=== PATIENT | male | born 1970 | race Caucasian/White ===

== ENCOUNTER 2016-08-11 16:12 | Observation (INO) | payer OTHER ==
[~2016-08-11] VITALS: Ht 182.9 cm; Wt 108.9 kg
[~2016-08-11 16:12] MED LIST: CITALOPRAM HYDR20 MG PO; CLONAZEPAM2 MG PO; DOXYCYCLINE MO100 MG PO; MEDROL DOSEPAK1 PAC PO; NORCO 325 MG-51 TAB PO; VALIUM2 MG PO
--- NOTE | 2016-08-11 16:18 | NUR ---
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 DENIES ANY NAUSEA, VOMITING, DIFF URINATING.
[2016-08-11 16:45] LABS: ABSOLUTE BASOPHIL COUNT 0.1 /CUMM (0.0-0.2); ABSOLUTE EOSINOPHIL COUNT 0 /CUMM (0.0-0.7); ABSOLUTE GRANULOCYTE CT 7.4 /CUMM (1.4-6.5); ABSOLUTE LYMPH COUNT 1.8 /CUMM (1.2-3.4); ABSOLUTE MONOCYTE COUNT 0.6 /CUMM (0.10-0.60); BASOPHIL % 1.5 % (0.0-2.0); EOSINOPHIL % 0.2 % (0-5); HEMATOCRIT 44.1 % (42-52); MEAN CORPUSCULAR HGB 31.7 PG (27.0-31.0); MEAN CORPUSCULAR HGB CONC 34.2 G/DL (33.0-37.0); MEAN CORPUSCULAR VOLUME 92.9 FL (80.0-94.0); MEAN PLATELET VOLUME 8.4 FL (7.4-10.4); PLATELET COUNT 263 /CUMM (130-400); RBC DISTRIBUTION WIDTH 13.2 % (11.5-14.5); RED BLOOD CELL CT 4.75 /CUMM (4.70-6.10); WHITE BLOOD CELL COUNT 9.9 /CUMM (4.8-10.8)
[2016-08-11 16:55] LABS: GRANULOCYTE % 74.8 % (42.2-75.2)
--- NOTE | 2016-08-11 17:02 | ED GI/GU/ABDOMINAL COMPLAINT ---
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 DENIES ANY NAUSEA, VOMITING, DIFF URINATING. Triage Nurses Notes Reviewed? yes Onset: Abrupt Duration: hour(s): (1), constant Timing: recent history Quality/Severity: aching, severe, throbbing Severity Numbers: 10 Location: left lower quadrant Radiation: LUQ Activities at Onset: none Prior Abdominal Problems: none No Modifying Factors: none Associated Symptoms: DENIES HPI: 45-year-old male with no past medical history presents to emergency room with family who is interpreting stating that for the past 1 hour he's had severe aching throbbing left lower quadrant abdominal pain that is radiating to the left upper quadrant and left flank. No recent injury or trauma no history of kidney stones. He is not taken anything for his symptoms. The patient reports to nausea and one episode of vomiting. No history of abdominal surgeries in the past. No chest pain no shortness of breath fever chills. No urinary symptoms. Nothing makes the pain better or worse she cannot get comfortable there no other associated symptoms otherwise ([address],KHOA) Reconcile Medications Acyclovir 400 MG TABLET 1 TAB PO TID ANTIVIRAL (Reported) Amoxicillin/Clavulanate Potass (Amox-Clav 875-125 MG Tablet) 875 MG-125 MG TABLET 1 TAB PO BID ANTIBIOTIC (Reported) Citalopram Hydrobromide (Citalopram HBr) 40 MG TABLET 1 TAB PO DAILY MENTAL HEALTH (Reported) Clonazepam 1 MG TABLET 2 TAB PO QPM SLEEP/ANXIETY (Reported) Methylprednisolone 4 MG TAB.DS.PK STEROID (Reported) (CHASITY GALVAN DO) Past History Travel History Traveled to [place] past 21 day No Medical History Any Pertinent Medical History? see below for history Neurological: NONE EENT: NONE Cardiovascular: NONE Respiratory: NONE Gastrointestinal: NONE Hepatic: NONE Renal: NONE Musculoskeletal: disk herniation Psychiatric: alcohol dependence, anxiety, depression Endocrine: NONE Blood Disorders: NONE Cancer(s): NONE LPN RN/Reproductive: NONE History of MRSA: No History of VRE: No History of CDIFF: No Surgical History Surgical History: NONE Psychosocial History Who do you live with Spouse Services at Home None What is your primary language Occitan Tobacco Use: Current Daily Use Daily Tobacco Use Amount/Type: =< 4 Cigarettes daily ETOH Use: denies use Illicit Drug Use: denies illicit drug use Family History Family History, If Any: Relation not specified for: Alcoholism in father Hx Contributory? No (KHOA MURRIETA) Review of Systems Review of Systems Constitutional: Reports: see HPI. All Other Systems: Reviewed and Negative Comments Review of systems: See HPI, All other systems negative. Constitutional, no chills no fever, no malaise HEENT: No visual changes no sore throat no congestion Cardiovascular: No chest pain , no palpitation Skin,no rashes, no change in skin Respiratory: No dyspnea no cough no sputum GI: No nausea no vomiting, no diarrhea, : No dysuria No hematuria, no frequency, no discharge Muscle skeletal: No joint pain, no back pain, no neck pain, Neurologic: No numbness no headache Psych: No stress Heme/endocrine: No bruising no bleeding Immunology: No lymphadenopathy (KHOA MURRIETA) Physical Exam Physical Exam General Appearance: well developed/nourished, alert, awake, moderate distress Gastrointestinal: soft Comments: Well-developed well-nourished person in no acute distress HEENT: Normal EENT exam; PERRL, EOMI, HEAD is atraumatic. moist mucous membranes. Neck: Supple, normal range of motion Back: Nontender, left CVA tenderness. Full range of motion Cardiovascular: Regular rate and rhythms no murmurs rubs Respiratory:. No respiratory distress. Patient speaking in full complete sentences. Breath sounds clear to auscultation bilaterally: NO W/R/R Abdomen: Soft, nontender nondistended, no appreciable organomegaly. Normal bowel sounds. No rebound/guarding, No appreciable enlargement of the abdominal aorta, No ascites. Extremity: No edema, full range of motion of extremities Neuro: Alert oriented x3, motor sensory normal, There were no obvious focal neurologic abnormalities. Skin: No appreciable rash on exposed skin, skin is warm and dry. Psych: Mood and affect is normal, memory and judgment is normal. Core Measures ACS in differential dx? No Severe Sepsis Present: No Septic Shock Present: No ([address],KHOA) Progress Differential Diagnosis: AAA, biliary colic, bowel obstruction, colon cancer, diverticulitis, gastritis, ischemic bowel, inflamm bowel dis, pancreatitis, peptic ulcer, perforated viscous, pyelonephritis, SBO, ureterolithiasis, urethritis, UTI/pyelo Plan of Care: Orders Procedure Date/time Status Nothing by Mouth 08/[address] in observation 08/11 185 Active Vital Signs 08/11 185 Active Code Status 08/11 185 Active Saline Lock 08/11 1840 Active Add-on Test (ER Only) 08/11 1703 Active URINALYSIS 08/11 1619 Complete LIPASE 08/11 161 Complete COMPREHENSIVE METABOLIC PANEL 08/11 161 Complete CBC WITHOUT DIFFERENTIAL 08/11 161 Complete AMYLASE 08/11 161 Complete EKG 08/11 1619 Active Laboratory Tests 08/11/16 1910: Urine Color YEL, Urine Clarity CLEAR, Urine pH 6.0, Ur Specific [place] 1.025, Urine Protein NEG, Urine Ketones NEG, Urine Nitrite NEG, Urine Bilirubin NEG, Urine Urobilinogen 0.2, Ur Leukocyte Esterase NEG, Ur Microscopic EXAM NOT REQUIRED, Urine Hemoglobin MOD H, Urine Glucose NEG 08/11/16 1619: Anion Gap 14, Estimated GFR > 60, BUN/Creatinine Ratio 20.0, Glucose 111 H, Calcium 8.9, Total Bilirubin 0.7, AST 29, ALT 55, Alkaline Phosphatase 70, Total Protein 7.3, Albumin 4.6, Globulin 2.7, Albumin/Globulin Ratio 1.7, Amylase 70, Lipase 62, CBC w Diff NO MAN DIFF REQ, RBC 4.75, MCV 92.9, MCH 31.7 H, RDW 13.2 , MPV 8.4, Gran % 74.8, Lymphocytes % 17.9 L, Monocytes % 5.6, Eosinophils % 0.2, Basophils % 1.5, Absolute Granulocytes 7.4 H, Absolute Lymphocytes 1.8, Absolute Monocytes 0.6, Absolute Eosinophils 0, Absolute Basophils 0.1, PUBS MCHC 34.2 Patient medicated Dilaudid 1 IV Toradol 30 IV IV fluids CAT scan ordered On repeat evaluation patient reports pain is now 5 Dilaudid 1 mg IV ordered pending CAT scan 08/11/2016 6:41:37 PM patient reports pain remains 5 out of 10 discussed with him and his family his CAT scan results, case was discussed with Dr. WATSON who advised Will place patient on her service for ureteral stenting tomorrow. Surgical PA was called I spoke with a nurse in the operating room as a surgical PA was currently scrubbed and she will relay the message for the surgical PA to consult on the patient ([address],KHOA) Diagnostic Imaging: Viewed by Me: CT Scan. Discussed w/RAD: CT Scan. Radiology Impression: PATIENT: DORCAS WEBBER PRESENT AGE: 45 PATIENT ACCOUNT NO: [id number] : 72 LOCATION: [facility] ORDERING PHYSICIAN: KHOA LANE SERVICE DATE: 08/11/16 EXAM TYPE: CAT - CT ABD & PELVIS W/O IV CONTRAS EXAMINATION: CT ABDOMEN AND PELVIS WITHOUT CONTRAST CLINICAL INFORMATION: Left lower quadrant and left flank pain. Evaluate for renal stone. COMPARISON: None. TECHNIQUE: Multidetector volumetric imaging was performed from the superior aspect of the liver through the pubic symphysis. Sagittal and coronal reformatted images were obtained on the technologist's workstation. DLP: 692 mGy-cm. FINDINGS: Limited evaluation of the solid abdominal viscera in the absence of intravenous contrast. LUNG BASES: The visualized lung bases are unremarkable. LIVER, GALLBLADDER, AND BILIARY TREE: The liver is normal in size, shape, and attenuation. No contour deforming hepatic lesion or biliary ductal dilatation is present. The gallbladder is unremarkable with no evidence of radiopaque gallstones, gallbladder wall thickening, or obvious pericholecystic inflammatory changes. PANCREAS: Unremarkable. SPLEEN: Unremarkable. ADRENAL GLANDS: Unremarkable. KIDNEYS AND URETERS: Evaluation of the bilateral kidneys and renal collecting systems is notable for obstructive uropathy of the left kidney secondary to a 9 mm stone ( craniocaudal dimension) within the proximal left ureter, approximately 1.8 cm from the left ureteral pelvic junction. There is associated mild upstream hydronephrosis of the left kidney and left renal collecting system. The left kidney appears edematous and there are mild surrounding perinephric inflammatory changes. A 5 mm nonobstructing stone is identified within the lower pole of the right kidney. There are no right-sided ureteral stones and there is no hydronephrosis of the right kidney or right renal collecting system. BLADDER: Unremarkable. GASTROINTESTINAL TRACT: Normal anatomic orientation of the stomach relative to the duodenum. Normal caliber of abdominal and pelvic bowel loops, without evidence of obstruction or ileus. No circumferential bowel wall thickening with surrounding inflammatory changes to suggest an underlying infectious or inflammatory enterocolitis. Normal-appearing appendix within the right lower quadrant of the abdomen. No organizing intra-abdominal fluid collections or free intraperitoneal air. ABDOMINAL WALL: No significant hernia is appreciated. LYMPH NODES: No significant abdominal or pelvic adenopathy. VASCULAR: Normal course and caliber of the abdominal aorta and its branching vessels, without aneurysmal dilatation. Limited evaluation for vascular patency in the absence of intravenous contrast. PELVIC VISCERA: Unremarkable. OSSEOUS STRUCTURES: No acute osseous abnormality. Normal alignment of the imaged thoracolumbar spine. No visible destructive osseous lesions. IMPRESSION: Obstructive uropathy of the left kidney secondary to a 0.9 cm stone ( craniocaudal dimension) within the proximal left ureter, approximately 1.8 cm from the left ureteral pelvic junction. There is associated mild upstream hydronephrosis of the left kidney and left renal collecting system. The left kidney appears edematous and there are mild surrounding perinephric inflammatory changes. A 0.5 cm nonobstructing stone is identified within the lower pole of the right kidney. There are no right-sided ureteral stones and there is no hydronephrosis of the right kidney or right renal collecting system. 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 <Electronically signed in Other Vendor System> SIGNED BY: CRISTINA SERRA MD 08/11/16 182 Initial ED EKG: none (KHOA MURRIETA) Departure Departure Time of Disposition: 1841 Disposition: STILL A PATIENT Condition: Stable Clinical Impression Primary Impression: Kidney stone Referrals: RUSLAN SAUCEDA,YESY Magallon (PCP/Family) DEV SAUCEDA,DEREK Banerjee Additional Instructions: follow up with urologist dr koenig. percocet for breakthrough pain- use caution as this is a narcotic and will make you drowsy. no driving or drinking alcohol while taking. Departure Forms: Customer Survey General Discharge Information Observation Note Spoke With: RICCARDO WATSON MD Physician Advisor Notified: CHASITY GALVAN DO Place Patient In: Non-ED OBS Care Area Rationale for Observation: My rational for observation is as follows [patient woke her IV pain management and IV fluids, OR for ureteral stenting lithotripsy in the morning. Premature discharge would BE medically harmful given 9 mm kidney stone (KHOA MURRIETA) PA/SHEET METAL PATTERN CUTTER Co-Sign Statement Statement: ED Attending supervision documentation- [] I saw and evaluated the patient. I have also reviewed all the pertinent lab results and diagnostic results. I agree with the findings and the plan of care as documented in the PA's/SHEET METAL PATTERN CUTTER's documentation. [X] I have reviewed the ED Record and agree with the PA's/SHEET METAL PATTERN CUTTER's documentation. [] Additions or exceptions (if any) to the PAs/SHEET METAL PATTERN CUTTER's note and plan are summarized below: [] (CHASITY GALVAN DO) ED Attending Observation Initial Observation Note: I have seen and personally examined DORCAS WEBBER on 08/11/16 at 1709. I agree with the current emergency department documentation. The disposition (admission or discharge) is uncertain at this time, he needs a period of observation for the following reason(s): The ED Nurse caring for this patient has been personally informed as to what the patient is being observed for. (KHOA MURRIETA)
--- NOTE | 2016-08-11 17:30 | NUR ---
PT EVALUATED BY ARIANA WESTON. IV EST, PT MEDICATED PER EMAR. NS INFUSING PER EMAR.
--- NOTE | 2016-08-11 18:02 | NUR ---
PT TO AND FROM CAT SCAN BY STRETCHER. STILL REPORTS L FLANK PAIN 02/12, MEDICTED WITH DILAUDID PER EMAR.
--- NOTE | 2016-08-11 18:21 | CT SCAN REPORT ---
EXAMINATION: CT ABDOMEN AND PELVIS WITHOUT CONTRAST CLINICAL INFORMATION: Left lower quadrant and left flank pain. Evaluate for renal stone. COMPARISON: None. TECHNIQUE: Multidetector volumetric imaging was performed from the superior aspect of the liver through the pubic symphysis. Sagittal and coronal reformatted images were obtained on the technologist's workstation. DLP: 692 mGy-cm. FINDINGS: Limited evaluation of the solid abdominal viscera in the absence of intravenous contrast. LUNG BASES: The visualized lung bases are unremarkable. LIVER, GALLBLADDER, AND BILIARY TREE: The liver is normal in size, shape, and attenuation. No contour deforming hepatic lesion or biliary ductal dilatation is present. The gallbladder is unremarkable with no evidence of radiopaque gallstones, gallbladder wall thickening, or obvious pericholecystic inflammatory changes. PANCREAS: Unremarkable. SPLEEN: Unremarkable. ADRENAL GLANDS: Unremarkable. KIDNEYS AND URETERS: Evaluation of the bilateral kidneys and renal collecting systems is notable for obstructive uropathy of the left kidney secondary to a 9 mm stone (craniocaudal dimension) within the proximal left ureter, approximately 1.8 cm from the left ureteral pelvic junction. There is associated mild upstream hydronephrosis of the left kidney and left renal collecting system. The left kidney appears edematous and there are mild surrounding perinephric inflammatory changes. A 5 mm nonobstructing stone is identified within the lower pole of the right kidney. There are no right-sided ureteral stones and there is no hydronephrosis of the right kidney or right renal collecting system. BLADDER: Unremarkable. GASTROINTESTINAL TRACT: Normal anatomic orientation of the stomach relative to the duodenum. Normal caliber of abdominal and pelvic bowel loops, without evidence of obstruction or ileus. No circumferential bowel wall thickening with surrounding inflammatory changes to suggest an underlying infectious or inflammatory enterocolitis. Normal-appearing appendix within the right lower quadrant of the abdomen. No organizing intra-abdominal fluid collections or free intraperitoneal air. ABDOMINAL WALL: No significant hernia is appreciated. LYMPH NODES: No significant abdominal or pelvic adenopathy. VASCULAR: Normal course and caliber of the abdominal aorta and its branching vessels, without aneurysmal dilatation. Limited evaluation for vascular patency in the absence of intravenous contrast. PELVIC VISCERA: Unremarkable. OSSEOUS STRUCTURES: No acute osseous abnormality. Normal alignment of the imaged thoracolumbar spine. No visible destructive osseous lesions. IMPRESSION: Obstructive uropathy of the left kidney secondary to a 0.9 cm stone (craniocaudal dimension) within the proximal left ureter, approximately 1.8 cm from the left ureteral pelvic junction. There is associated mild upstream hydronephrosis of the left kidney and left renal collecting system. The left kidney appears edematous and there are mild surrounding perinephric inflammatory changes. A 0.5 cm nonobstructing stone is identified within the lower pole of the right kidney. There are no right-sided ureteral stones and there is no hydronephrosis of the right kidney or right renal collecting system.
--- NOTE | 2016-08-11 19:16 | NUR ---
URINE TRIO SENT
[2016-08-11] MEDS ORDERED: ACYCLOVIR400 M1 PO (19:26)
[2016-08-11] MEDS ORDERED: CITALOPRAM HBR40 MG PO (19:27)
[2016-08-11] MEDS ORDERED: AMOX-CLAV 875-1 EACH PO (19:27)
[2016-08-11] MEDS ORDERED: CLONAZEPAM1 M2 PO (19:27)
[2016-08-11] MEDS ORDERED: METHYLPREDNISOLO4 M2 PO (19:27)
--- NOTE | 2016-08-11 19:47 | NUR ---
PT STATES PAIN CAME BACK 02/12 NOW, PT MEDICATED WITH DILAUDID PER EMAR. ALSO PT MEDICATED WITH AUGMENTIN AND PREDNISONE PER EMAR.
--- NOTE | 2016-08-11 21:02 | History & Physical Pre-Op ---
General Information and HPI MD Statement: I have seen and personally examined DORCAS WEBBER and documented this H&P. The patient is a 45 year old M who presented with a patient stated chief complaint of L abdominal/flank pain. Source of Information: patient, family Exam Limitations: language barrier History of Present Illness: Pt is a 45 yo romanian-speaking M with a pmh siginificant for active smoking, ANN-MARIE (on cpap), depression, and a hx of alcohol dependence who presented to the ED with complaints of sudden onset of left-sided abdominal and flank pain since about 3:30 PM. Patient states that he noticed some mild hematuria about 2 days ago, which persisted, but did not cause him great concern, until this afternoon when the pain started. He also complains of nausea and 1 episode of emesis. Mild dysuria today as well. He otherwise denies fever, chills, headache, dizziness, chest pain, shortness of breath, palpitations, heartburn, constipation, diarrhea, oliguria, polyuria. He has also never had symptoms like this in the past and denies a previous history of nephrolithiasis. He last ate at 3 PM today. Allergies/Medications Allergies: Coded Allergies: NO KNOWN ALLERGIES (10/17/15) Home Med list Acyclovir 400 MG TABLET 1 TAB PO TID ANTIVIRAL (Reported) Amoxicillin/Clavulanate Potass (Amox-Clav 875-125 MG Tablet) 875 MG-125 MG TABLET 1 TAB PO BID ANTIBIOTIC (Reported) Citalopram Hydrobromide (Citalopram HBr) 40 MG TABLET 1 TAB PO DAILY MENTAL HEALTH (Reported) Clonazepam 1 MG TABLET 2 TAB PO QPM SLEEP/ANXIETY (Reported) Methylprednisolone 4 MG TAB.DS.PK STEROID (Reported) Past History Medical History Neurological: NONE EENT: NONE Cardiovascular: NONE Respiratory: obstructive sleep apnea (uses cpap) Gastrointestinal: NONE Hepatic: NONE Renal: nephrolithiasis (this admission) Musculoskeletal: disk herniation Psychiatric: alcohol dependence, anxiety, depression Endocrine: NONE Blood Disorders: NONE Cancer(s): NONE 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 spouse, child Services at Home None Primary Language: Slovak Smoking Status: Heavy Tobacco Smoker ETOH Use: heavy use Illicit Drug Use: denies illicit drug use Living Will? unknown Power of Electrical Automation Engineer/HCP? unknown Functional Ability ADLs Independent: dressing, eating, toileting, bathing. Ambulation: independent IADLs Independent: shopping, housework, finances, food prep, telephone, transportation , medication admin. Review of Systems Review of Systems: see HPI Exam & Diagnostic Data Last 24 Hrs of Vital Signs/I&O Vital Signs Date Time Temp Pulse Resp B/P Pulse O2 O2 Flow FiO2 Ox Delivery Rate 08/11 2101 98.2 80 20 113/63 95 Room Air 08/11 191 98.2 80 20 143/78 95 Room Air 08/11 1617 98.9 97 16 187/106 100 Room Air Physical Exam: Gen.: Patient is awake and alert. He moves around in the bed in distress due to pain. Cardiac: Regular Pulmonary: Coarse breath sounds noted. Abdomen: Soft, mildly distended, but no significant focal tenderness. Normoactive bowel sounds. Extremities: No significant edema or calf tenderness. Last 24 Hrs of Labs/Vincent: Laboratory Tests 08/11/161909: Urine Color YEL, Urine Clarity CLEAR, Urine pH 6.0, Ur Specific [place] 1.025, Urine Protein NEG, Urine Ketones NEG, Urine Nitrite NEG, Urine Bilirubin NEG, Urine Urobilinogen 0.2, Ur Leukocyte Esterase NEG, Ur Microscopic EXAM NOT REQUIRED, Urine Hemoglobin MOD H, Urine Glucose NEG 08/11/16 1619: Anion Gap 14, Estimated GFR > 60, BUN/Creatinine Ratio 20.0, Glucose 111 H, Calcium 8.9, Total Bilirubin 0.7, AST 29, ALT 55, Alkaline Phosphatase 70, Total Protein 7.3, Albumin 4.6, Globulin 2.7, Albumin/Globulin Ratio 1.7, Amylase 70, Lipase 62, CBC w Diff NO MAN DIFF REQ, RBC 4.75, MCV 92.9, MCH 31.7 H, RDW 13.2 , MPV 8.4, Gran % 74.8, Lymphocytes % 17.9 L, Monocytes % 5.6, Eosinophils % 0.2, Basophils % 1.5, Absolute Granulocytes 7.4 H, Absolute Lymphocytes 1.8, Absolute Monocytes 0.6, Absolute Eosinophils 0, Absolute Basophils 0.1, PUBS MCHC 34.2 Diagnostic Data Other Results CT scan of the abdomen and pelvis revealed: Obstructive uropathy of the left kidney secondary to a 0.9 cm stone (craniocaudal dimension) within the proximal left ureter, approximately 1.8 cm from the left ureteral pelvic junction. There is associated mild upstream hydronephrosis of the left kidney and left renal collecting system. The left kidney appears edematous and there are mild surrounding perinephric inflammatory changes. A 0.5 cm nonobstructing stone is identified within the lower pole of the right kidney. There are no right-sided ureteral stones and there is no hydronephrosis of the right kidney or right renal collecting system. Assessment/Plan Assessment/Plan: Patient is a 45-year-old male with a past medical history significant for active smoking, ANN-MARIE (on cpap), depression, and a hx of alcohol dependence with left obstructing nephrolithiasis. Plan: -Patient will need lithotripsy and stent, however he ate lunch around 3 PM today. -He will be admitted for [address] Duran service. -Keep nothing by mouth after midnight. -IV fluids. -Dilaudid and Toradol as needed for pain control. -Zofran as needed for nausea. -No antibiotics are needed, however patient was given a dose of Augmentin as per his home med list. He was recently started on antibiotics, antivirals, and the Medrol Dosepak by Dr. 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 The details of this are unclear due to the language barrier. Patient was given a dose of prednisone in the ED this evening. He may resume all of his meds upon discharge after his procedure tomorrow. -This was discussed with Dr. Duran and the patient and all are in agreement. As Ranked By This Provider Problem List: 1. Kidney stone
--- NOTE | 2016-08-11 21:14 | NUR ---
PT MEDICATED WITH KLONOPIN, D5/NS INFUSING PER EMAR. URINE STRAINER PROVIDED TO PT.
--- NOTE | 2016-08-11 21:37 | NUR ---
PT HAS BED ASSIGNMENT 235-2
--- NOTE | 2016-08-11 21:52 | NUR ---
REPORT GIVEN TO [facility].[employer] CALLED FOR TRANSPORTATION.
--- NOTE | 2016-08-11 21:57 | Admission Core Measures ---
Admission Lab Results I reviewed the following labs: Laboratory Tests 08/11 08/11 1910 1619 Chemistry Sodium (137 - 145 mmol/L) 140 Potassium (3.5 - 5.1 mmol/L) 4.4 Chloride (98 - 107 mmol/L) 100 Carbon Dioxide (22 - 30 mmol/L) 25 Anion Gap (5 - 16) 14 BUN (9 - 20 mg/dL) 18 Creatinine (0.7 - 1.2 mg/dL) 0.9 Estimated GFR (>60 ml/min) > 60 BUN/Creatinine Ratio (7 - 25 %) 20.0 Glucose (65 - 99 mg/dL) 111 H Calcium (8.4 - 10.2 mg/dL) 8.9 Total Bilirubin (0.2 - 1.3 mg/dL) 0.7 AST (17 - 59 U/L) 29 ALT (21 - 72 U/L) 55 Alkaline Phosphatase (< 127 U/L) 70 Total Protein (6.3 - 8.2 g/dL) 7.3 Albumin (3.5 - 5.0 g/dL) 4.6 Globulin (1.9 - 4.2 gm/dL) 2.7 Albumin/Globulin Ratio (1.1 - 2.2 %) 1.7 Amylase (30 - 110 U/L) 70 Lipase (23 - 300 U/L) 62 Hematology CBC w Diff NO MAN DIFF REQ WBC (4.8 - 10.8 /CUMM) 9.9 RBC (4.70 - 6.10 /CUMM) 4.75 Hgb (14.0 - 18.0 G/DL) 15.1 Hct (42 - 52 %) 44.1 MCV (80.0 - 94.0 FL) 92.9 MCH (27.0 - 31.0 PG) 31.7 H RDW (11.5 - 14.5 %) 13.2 Plt Count (130 - 400 /CUMM) 263 MPV (7.4 - 10.4 FL) 8.4 Gran % (42.2 - 75.2 %) 74.8 Lymphocytes % (20.5 - 51.1 %) 17.9 L Monocytes % (1.7 - 9.3 %) 5.6 Eosinophils % (0 - 5 %) 0.2 Basophils % (0.0 - 2.0 %) 1.5 Absolute Granulocytes (1.4 - 6.5 /CUMM) 7.4 H Absolute Lymphocytes (1.2 - 3.4 /CUMM) 1.8 Absolute Monocytes (0.10 - 0.60 /CUMM) 0.6 Absolute Eosinophils (0.0 - 0.7 /CUMM) 0 Absolute Basophils (0.0 - 0.2 /CUMM) 0.1 PUBS MCHC (33.0 - 37.0 G/DL) 34.2 Urines Urine Color (YEL,AMB,STR) YEL Urine Clarity (CLEAR) CLEAR Urine pH (5.0 - 8.0) 6.0 Ur Specific [place] (1.001 - 1.035) 1.025 Urine Protein (NEG,<30 MG/DL) NEG Urine Ketones (NEG) NEG Urine Nitrite (NEG) NEG Urine Bilirubin (NEG) NEG Urine Urobilinogen (0.1 - 1.0 EU/dl) 0.2 Ur Leukocyte Esterase (NEG) NEG Ur Microscopic EXAM NOT REQUIRED Urine Hemoglobin (NEG) MOD H Urine Glucose (N MG/DL) NEG Admission Meds I reviewed the following Meds: Current Medications Sig/Eleazar Start time Last Medication Dose Stop Time Status Admin Acetaminophen 650 MG Q4P PRN 08/11 2099 AC (Tylenol) Hydromorphone HCl 1 MG Q3P PRN 08/11 2100 AC (Dilaudid) Ketorolac 30 MG Q8P PRN 08/11 2100 AC Tromethamine (Toradol) Ondansetron HCl 4 MG Q6P PRN 08/11 2100 AC (Zofran) Acute Coronary Syndrome Inclusion Criteria ACS Diagnosis No Inpatient Core Measures LDL Reminder: If No, please order W/I first 24hr of stay Congestive Heart Failure Inclusion Criteria CHF Diagnosis No Cerebrovascular accident Inclusion Criteria CVA/TIA Diagnosis No Inpatient Core Measures Bedside Swallow Eval Reminder: If BSE failed, place ST order Antithrombotic Reminder: Order Antithrombotic Medication by end of day 2 Antithrombotic Reminder: Document Reason Antithrombotic Not ordered by end of day 2 AFIB/Flutter Reminder: If Present, add to problem list AFIB/Flutter Reminder: Order Anticoag Medication for pts with AFIB/Flutter Atherosclerosis Reminder: If Present, add to problem list LDL Reminder: If No, please order W/I first 24hr of stay PT Order Reminder: If No, please order Venous thromboembolism Inpatient Core Measures VTE Risk Factors: Acute medical illness, Age > 40, Smoking, Surgery VTE Prophylaxis Ordered Inpt Mechanical (ALPS/TEDS) No [facility] VTE prophylaxis d/t No contraindications No VTE Pharm Prophylaxis d/t Surgical contraindication Inclusion Criteria - Per Current guidelines, there needs to be overlap - treatment for the first 5 days of Warfarin therapy. - Parenteral Anticoagulation (IV or SC) needs to be - given along with Warfarin therapy. VTE Diagnosis No VTE Type NONE VTE Confirmed by (Test) NONE Problem List As ranked by this Provider includes Assessment & Plan 1. Kidney stone HOME MEDS Home Med List Acyclovir 400 MG TABLET 1 TAB PO TID ANTIVIRAL (Reported) Amoxicillin/Clavulanate Potass (Amox-Clav 875-125 MG Tablet) 875 MG-125 MG TABLET 1 TAB PO BID ANTIBIOTIC (Reported) Citalopram Hydrobromide (Citalopram HBr) 40 MG TABLET 1 TAB PO DAILY MENTAL HEALTH (Reported) Clonazepam 1 MG TABLET 2 TAB PO QPM SLEEP/ANXIETY (Reported)
[2016-08-11 22:12] VITALS: BP 130/70
[2016-08-12 06:34] VITALS: BP 120/70
--- NOTE | 2016-08-12 12:11 | Cons- Urology ---
General Information and HPI Consulting Request Date of Consult: 08/11/16 Requested By: LUIS LANE Reason for Consult: left renal colic Source of Information: ER PA Exam Limitations: poor historian History of Present Illness: This is a 45-year-old male with a history of left renal colic which prompted a [facility] ER visit. He was having nausea and vomiting and severe left flank pain. He has never had a history of kidney stones previously that he is aware. He admits that he does not drink much water. He was recently diagnosed with the viral illness affecting his face and was started on steroids as well as acyclovir. However other than this, he has no previous medical history other than excessive EtOH intake which he has had 2 detox interventions in the past. He does have a history of depression as well. Allergies/Medications Allergies: Coded Allergies: NO KNOWN ALLERGIES (10/17/15) Home Med List: Acyclovir 400 MG TABLET 1 TAB PO TID ANTIVIRAL (Reported) Amoxicillin/Clavulanate Potass (Amox-Clav 875-125 MG Tablet) 875 MG-125 MG TABLET 1 TAB PO BID ANTIBIOTIC (Reported) Citalopram Hydrobromide (Citalopram HBr) 40 MG TABLET 1 TAB PO DAILY MENTAL HEALTH (Reported) Clonazepam 1 MG TABLET 2 TAB PO QPM SLEEP/ANXIETY (Reported) Methylprednisolone 4 MG TAB.DS.PK STEROID (Reported) Current Medications: Current Medications Sig/Eleazar Start time Last Medication Dose Route Stop Time Status Admin Acetaminophen 650 MG Q4P PRN 08/11 2100 AC PO Amoxicillin/ 500 MG ONCE ONE 08/11 1930 DC 08/11 Clavulanate Potassium PO 08/11 1930 194 Amoxicillin/ 0 .STK-MED ONE 08/11 1924 DC Clavulanate Potassium PO Amoxicillin/ 0 .STK-MED ONE 08/11 1916 DC Clavulanate Potassium PO Amoxicillin/ 500 MG ONCE ONE 08/11 1900 DC 08/11 Clavulanate Potassium PO 08/11 1900 194 Citalopram 40 MG DAILY 08/12 1400 AC Hydrobromide PO Clonazepam 0 .STK-MED ONE 08/11 1915 DC PO Clonazepam 2 MG ONCE ONE 08/11 1900 DC 08/11 PO 08/11 1900 2111 Dextrose/Sodium 1,000 ML Q8H 08/11 2100 AC 08/12 Chloride IV 0413 Hydromorphone HCl 1 MG Q3P PRN 08/11 2100 AC IV Hydromorphone HCl 1 MG ONCE ONE 08/11 1945 DC 08/11 IV 08/11 1946 1947 Hydromorphone HCl 0 .STK-MED ONE 08/11 1938 DC .ROUTE Hydromorphone HCl 0 .STK-MED ONE 08/11 1756 DC .ROUTE Hydromorphone HCl 1 MG ONCE ONE 08/11 1745 DC 08/11 IV 08/11 1746 1802 Hydromorphone HCl 0 .STK-MED ONE 08/11 1719 DC .ROUTE Hydromorphone HCl 1 MG ONCE ONE 08/11 1715 DC 08/11 IV 08/11 1716 1727 Ketorolac 30 MG Q8P PRN 08/11 2100 AC Tromethamine IV Ketorolac 0 .STK-MED ONE 08/11 1718 DC Tromethamine .ROUTE Ketorolac 30 MG ONCE ONE 08/11 1715 DC 08/11 Tromethamine IV 08/11 1716 1727 Nicotine 21 MG 2200 08/12 0015 AC 08/12 TOP 0132 Ondansetron HCl 4 MG Q6P PRN 08/11 2100 AC IV Ondansetron HCl 0 .STK-MED ONE 08/11 1718 DC .ROUTE Ondansetron HCl 4 MG ONCE ONE 08/11 1715 DC 08/11 IV 08/11 1716 1727 Oxycodone/ 0 .STK-MED ONE 08/11 2212 DC Acetaminophen PO Prednisone 0 .STK-MED ONE 08/11 1916 DC PO Prednisone 40 MG ONCE ONE 08/11 1900 DC 08/11 PO 08/11 190 1947 Sodium Chloride 1,000 ML BOLUS ONE 08/11 1715 DC 08/11 IV 08/11 1814 1727 Past History Medical History Blood Transfusion Hx: No Neurological: NONE EENT: NONE (viral illness) Cardiovascular: NONE Respiratory: obstructive sleep apnea (uses cpap) Gastrointestinal: NONE Hepatic: NONE Renal: nephrolithiasis (this admission) Musculoskeletal: disk herniation Psychiatric: alcohol dependence, anxiety, depression Endocrine: NONE Blood Disorders: NONE Cancer(s): NONE 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 Home Who Do You Live With? spouse, child Services at Home: None Primary Language: Albanian Smoking Status: Heavy Tobacco Smoker ETOH Use: heavy use Illicit Drug Use: denies illicit drug use Living Will? unknown Power of Yield Engineer/HCP? unknown Functional Ability ADLs Independent: dressing, eating, toileting, bathing. Ambulation: independent IADLs Independent: shopping, housework, finances, food prep, telephone, transportation , medication admin. Employment History Retired? no Review of Systems Review of Systems Constitutional: Denies: no symptoms. EENTM: Denies: no symptoms. Cardiovascular: Denies: no symptoms. Respiratory: Denies: no symptoms. GI: Denies: no symptoms. Genitourinary: Denies: no symptoms. Musculoskeletal: Reports: back pain. Skin: Denies: no symptoms. Neurological/Psychological: Reports: see HPI. Hematologic/Endocrine: Denies: no symptoms. Exam & Diagnostic Data Vital Signs and I&O Vital Signs Date Time Temp Pulse Resp B/P Pulse O2 O2 Flow FiO2 Ox Delivery Rate 08/12 0534 97.6 86 20 120/70 96 Room Air 08/12 0023 68 96 08/11 2223 Room Air 08/11 2212 97.6 83 20 130/70 95 Room Air 08/11 2102 98.2 80 20 113/63 95 Room Air 08/11 1914 98.2 80 20 143/78 95 Room Air 08/11 1617 98.9 97 16 187/106 100 Room Air Intake & Output 08/12 1600 08/12 0800 08/12 0000 08/11 1600 08/11 0800 08/11 0000 Intake Total 600 1240 Output Total 600 Balance 0 1240 Intake, IV 600 1000 Intake, Oral 240 Output, Urine 600 Patient 108.862 kg Weight Physical Exam: Awake and alert and sitting up in bed. Abdomen soft nondistended nontender. Left CVA tenderness. No Betancourt in place. No clubbing cyanosis or edema in the lower extremities. Physical Exam General Appearance: well developed/nourished, no apparent distress, alert, awake , comfortable Head: atraumatic, normal appearance Eyes: Bilateral: normal appearance. Ears, Nose, Throat: normal ENT inspection Respiratory: no respiratory distress Gastrointestinal: soft, non-tender Rectal: deferred Back: CVA tenderness (L) Extremities: normal inspection Neurologic/Psych: no motor/sensory deficits, awake, alert, oriented x 3 Cranial Nerves: normal hearing, normal speech Skin: intact, normal color, warm/dry Reproductive: Normal male genitalia Last 24 Hours of Labs: Laboratory Tests 08/11 08/11 1910 1619 Chemistry Sodium (137 - 145 mmol/L) 140 Potassium (3.5 - 5.1 mmol/L) 4.4 Chloride (98 - 107 mmol/L) 100 Carbon Dioxide (22 - 30 mmol/L) 25 Anion Gap (5 - 16) 14 BUN (9 - 20 mg/dL) 18 Creatinine (0.7 - 1.2 mg/dL) 0.9 Estimated GFR (>60 ml/min) > 60 BUN/Creatinine Ratio (7 - 25 %) 20.0 Glucose (65 - 99 mg/dL) 111 H Calcium (8.4 - 10.2 mg/dL) 8.9 Total Bilirubin (0.2 - 1.3 mg/dL) 0.7 AST (17 - 59 U/L) 29 ALT (21 - 72 U/L) 55 Alkaline Phosphatase (< 127 U/L) 70 Total Protein (6.3 - 8.2 g/dL) 7.3 Albumin (3.5 - 5.0 g/dL) 4.6 Globulin (1.9 - 4.2 gm/dL) 2.7 Albumin/Globulin Ratio (1.1 - 2.2 %) 1.7 Amylase (30 - 110 U/L) 70 Lipase (23 - 300 U/L) 62 Hematology CBC w Diff NO MAN DIFF REQ WBC (4.8 - 10.8 /CUMM) 9.9 RBC (4.70 - 6.10 /CUMM) 4.75 Hgb (14.0 - 18.0 G/DL) 15.1 Hct (42 - 52 %) 44.1 MCV (80.0 - 94.0 FL) 92.9 MCH (27.0 - 31.0 PG) 31.7 H RDW (11.5 - 14.5 %) 13.2 Plt Count (130 - 400 /CUMM) 263 MPV (7.4 - 10.4 FL) 8.4 Gran % (42.2 - 75.2 %) 74.8 Lymphocytes % (20.5 - 51.1 %) 17.9 L Monocytes % (1.7 - 9.3 %) 5.6 Eosinophils % (0 - 5 %) 0.2 Basophils % (0.0 - 2.0 %) 1.5 Absolute Granulocytes (1.4 - 6.5 /CUMM) 7.4 H Absolute Lymphocytes (1.2 - 3.4 /CUMM) 1.8 Absolute Monocytes (0.10 - 0.60 /CUMM) 0.6 Absolute Eosinophils (0.0 - 0.7 /CUMM) 0 Absolute Basophils (0.0 - 0.2 /CUMM) 0.1 PUBS MCHC (33.0 - 37.0 G/DL) 34.2 Urines Urine Color (YEL,AMB,STR) YEL Urine Clarity (CLEAR) CLEAR Urine pH (5.0 - 8.0) 6.0 Ur Specific [place] (1.001 - 1.035) 1.025 Urine Protein (NEG,<30 MG/DL) NEG Urine Ketones (NEG) NEG Urine Nitrite (NEG) NEG Urine Bilirubin (NEG) NEG Urine Urobilinogen (0.1 - 1.0 EU/dl) 0.2 Ur Leukocyte Esterase (NEG) NEG Ur Microscopic EXAM NOT REQUIRED Urine Hemoglobin (NEG) MOD H Urine Glucose (N MG/DL) NEG Imaging Results: CT scan with 5mm lower pole stone in the right kidney left kidney with hydronephrosis and 9mm stone near the UPJ junction with perinephric stranding. Assessment/Plan Assessment/Plan 45-year-old with no history of previous kidney stones now with left renal colic and 9 mm obstructing stone. He was kept nothing by mouth with IV fluids overnight. He will go for a left ureteral stent placement and consent was obtained. The risks benefits and alternatives of the surgery were given. All questions were answered. He will follow up as an outpatient in my office. Consult Acknowledgment - Thank you for your consult request.
--- NOTE | 2016-08-12 12:15 | Operative Report ---
Operative/Inv Procedure Report Surgery Date: 08/12/16 Name of Procedure: left ureteral stent placement, cystoscopy Pre-Operative Diagnosis: left renal stone with hydronephrosis Post-Operative Diagnosis: same Estimated Blood Loss: scant Surgeon/Senior Infrastructure Architect: RICCARDO WATSON MD Anesthesia: local monitored anesthesi Drains: 6x26 cm stent Complications: none Condition: stable Operative Indication: left renal colic and obstructing stone Operative/Procedure Note Note: This is an operative dictation on patient Rolando Ni. He was consented for a left ureteral stent and cystoscopy. The risks benefits and alternatives of the surgery were given to the patient and his family. All questions were answered. Patient was taken to the operating room placed on the operating table in the supine position. Once timeout was performed and IV sedation was given patient was placed in the dorsal lithotomy position. He was prepped and draped in the standard sterile fashion. Cystoscope was placed into the bladder under direct visualization and the bladder was globally inspected. There are no abnormalities appreciated. The ureteral orifices were easily identified. The left ureteral orifice was cannulated with a sensor guidewire. This was seen to be in the renal pelvis under fluoroscopic guidance. A 6 x 26 cm ureteral stent was placed over the wire and was seen to be in good position. The wire was removed and the stent was seen to be in excellent position with the proximal portion in the renal pelvis and the distal portion in the bladder. Patient tolerated the procedure well. The bladder was emptied. The cystoscope was removed. Findings: no renal stone seen on flouroscopy. stent seen to be in good position of flouroscopy. Discharge Disposition: PACU
--- NOTE | 2016-08-12 12:16 | Patient Discharge Instructions ---
See Addendum Discharge Instructions General Discharge Information You were seen/treated for: NEPHROLITHIASIS You had these procedures: CYSTOSCOPY Watch for these problems: INCREASED ABDOMINAL OR FLANK PAIN, FEVER GREATER THAN 101F Diet Continue normal diet: Yes Activity Full Activity/No Limits: Yes Acute Coronary Syndrome Inclusion Criteria At DC or during hospital stay patient has or had the following: ACS DIAGNOSIS No Discharge Core Measures Meds if any: Prescribed or Continued at Discharge Meds if any: NOT Prescribed or Continued at Discharge Congestive Heart Failure Inclusion Criteria At DC or during hospital stay patient has or had the following: CHF DIAGNOSIS No Discharge Core Measures Meds if any: Prescribed or Continued at Discharge Meds if any: NOT Prescribed or Continued at Discharge Cerebrovascular accident Inclusion Criteria At DC or during hospital stay patient has or had the following: CVA/TIA Diagnosis No Discharge Core Measures Meds if any: Prescribed or Continued at Discharge Meds if any: NOT Prescribed or Continued at Discharge Venous thromboembolism Inclusion Criteria VTE Diagnosis No VTE Type NONE VTE Confirmed by (Test) NONE Discharge Core Measures - Per Current guidelines, there needs to be overlap - treatment for the first 5 days of Warfarin therapy. - If discharged on Warfarin prior to 5 days of - overlap therapy, the patient will need to be - assessed for post discharge needs including - *Post discharge parental anticoagulation - *Warfarin and/or parental anticoagulation education - *Follow up date to check INR post discharge At least 5 days overlap therapy as Inpatient No Meds if any: Prescribed or Continued at Discharge Note: Overlap Therapy is Warfarin and Anticoagulant Meds if any: NOT Prescribed or Continued at Discharge
[2016-08-12] MEDS ORDERED: PERCOCET 5-3251 EACH PO (12:18)
[2016-08-12 13:00] VITALS: BP 160/90
--- NOTE | 2016-08-12 14:10 | NUR ---
PT DISCHARGED AT THIS TIME. VOIDING RED, CLEAR URINE. SOME ABDOMINAL PAIN 01/13. PERCOCET GIVEN. INSTRUCTIONS ON MEDICATIONS GIVEN TO PATIENT AT FAMILY. DAUGHTER ASKING FOR PRESCRIPTION FOR XANAX SINCE PT MISSED APPOINTMENT YESTERDAY FOR RENEWAL. PA UNABLE TO WRITE PRESCRIPTION, FAMILY INFORMED. PT AND FAMILY VERBALIZED UNDERSTANDING OF DC INSTRUCTIONS AND NEW MEDICATIONS.
--- NOTE | 2016-08-12 16:07 | RADIOLOGY REPORT ---
EXAMINATION: XR ABDOMEN CLINICAL INDICATION: Left cystoureteroscopy with stent placement. Left hydronephrosis secondary to a proximal ureteral calculus on recent CT. COMPARISON: CT abdomen and pelvis without contrast 08/11/2016. TECHNIQUE: 2 fluoroscopic spot views are obtained of the left renal fossa region. Total fluoroscopy time reported as 2 seconds. FINDINGS: The final image shows left ureteral stent overlying the region left renal fossa. IMPRESSION: Left ureteral stent placed.
== END 2016-08-12 14:00 ==
LOC: ERH 16:12 → ERHI 18:56 → ERH 20:09 → 2NA 21:59
PROVIDERS: Emergency Medicine; ADMIT Urology
DX: N20.0 Calculus of kidney (principal); N13.30 Unspecified hydronephrosis; F32.9 Major depressive disorder, single episode, unspecified; F10.20 Alcohol dependence, uncomplicated
CPT/HCPCS: 1288; 6030; 74000; 74176; 81003; 93005; 93010; 96374; 96375; 96376; C2617; G0378; J1885; J2405; J3490; J7042

== ENCOUNTER → 2016-08-21 | Day surgery (SDC) | payer OTHER ==
[~2016-08-21] VITALS: Ht 182.9 cm; Wt 108.9 kg
[~2016-08-21] MED LIST changes: +ACYCLOVIR400 M1 PO; +AMOX-CLAV 875-1 EACH PO; +CITALOPRAM HBR40 MG PO; +CLONAZEPAM1 M2 PO; +METHYLPREDNISOLO4 M2 PO; +PERCOCET 5-3251 EACH PO
--- NOTE | 2016-08-21 08:02 | Operative Report ---
Operative/Inv Procedure Report Surgery Date: 08/21/16 Name of Procedure: LEFT EXTRACORPOERAL SHOCKWAVE LITHORTIPSY Pre-Operative Diagnosis: left renal stone Post-Operative Diagnosis: left ureteral stone, midureter Estimated Blood Loss: scant Surgeon/Vibrator Equipment Tester: RICCARDO WATSON MD Anesthesia: local monitored anesthesi Complications: none Condition: stable Operative Indication: left renal stone with stent in place Operative/Procedure Note Note: 45yo male with a hx of bilateral kidney stones that was discovered incidentally when he went to the ER for renal colic. He was placed with a left ureteral stent due to pain and hydronephrosis from a 9mm stone. He was consented for a left ESWL with his daughter present and the r/b/a of the surgery were given. All questions were answered. He was taken to the operating room and placed on the operating room table in the supine position. Once time out was performed, IV antibiotics were infused and IV sedation started. The stone was identified in the left mid ureter and not the kidney renal area. This was shown to the patient as well. The ESWL was started with the patient positioned for optimal ESWL. Shockwaves were started at a power of 1-17 for 250 shocks, power 18-19 for 250 shocks and finally power of 20 for 2000 shocks. The patient tolerated the procedure well. The pre and post flouroscopy images showed a change in the character of the stone. He was transferred to the recovery room in stable condition. Findings: left ureteral stone with stent in position Discharge Disposition: Same Day Admissions
== END ==
LOC: STS 04:09
DX: N20.0 Calculus of kidney (principal); Z87.442 Personal history of urinary calculi; F17.200 Nicotine dependence, unspecified, uncomplicated
CPT/HCPCS: J0690; J2250

== ENCOUNTER → 2016-09-22 | Day surgery (SDC) | payer OTHER ==
[~2016-09-22] VITALS: Ht 182.9 cm; Wt 108.9 kg
--- NOTE | 2016-09-23 14:06 | Operative Report ---
Operative/Inv Procedure Report Surgery Date: 09/22/16 Name of Procedure: left ureteroscopy with laser lithotripsy, stent removal and placement Pre-Operative Diagnosis: left ureteral stone Post-Operative Diagnosis: same Estimated Blood Loss: scant Surgeon/Power Transformer Repairer: RICCARDO WATSON MD Anesthesia: laryngeal mask airway Drains: 6x26cm stent Specimens: stone fragments Complications: none Condition: stable Operative Indication: renal colic Operative/Procedure Note Note: 45yo male with stent and then ESWL recently with no passed stone fragments and peristent renal colic. Given the risks, benefits and alternatives of the surgery. Answered all questions. Consented for left URS with laser lithotripsy , stone extraction, stent replacement, possible retrorgrade pyelogram Patient identified in the holding area and taken to the operating room. He was placed on the operating table in the supine position. Time out was performed and IV antibiotics were given. An LMA was placed and the patient was positioned in the dorsal lithotomy position. He was prepped and draped in the standard sterile fashion. Cystoscopy was performed first and a sensor guidewire was placed without difficulty through the existing stent. The semirigid scope was then placed up the ureter until the stone was encountered. It was lasered with a 400 micron fiber to smaller fragments. These fragments were then removed using a zero tip basket. The fragments were sent for anlaysis. The wire was then used to place a ureteral stent 6x26cm in length with the cystoscope with the string attached. This was secured to his penis with tegaderm. The patient tolerated the procedure well. Findings: left ureteral mid stone Discharge Disposition: PACU
--- NOTE | 2016-09-23 17:04 | RADIOLOGY REPORT ---
EXAMINATION: XR ABDOMEN CLINICAL INDICATION: Ureteroscopy and stent placement. COMPARISON: KUB dated 09/13/2016. TECHNIQUE: Fluoroscopic C-arm equipment was dedicated to the operating room for the performance of a ureteroscopy and stent placement. 14 spot films were obtained and are submitted for review. FLUOROSCOPY TIME: 7 seconds. FINDINGS: Images demonstrate guidewire in the left ureter with various stages of left ureteral stent deployment. On final image, the distal pigtail of the stent is seen in the region of the bladder. Proximal pigtail is not imaged. IMPRESSION: Left ureteral stent placement.
== END ==
LOC: STS 01:22
DX: N20.1 Calculus of ureter (principal); Z87.442 Personal history of urinary calculi; F17.200 Nicotine dependence, unspecified, uncomplicated
CPT/HCPCS: 74000; 82355; C2617; J0131; J0690; J2250